=== PATIENT | male | born 1970 | race African-American/Black ===

== ENCOUNTER 2019-08-31 08:44 | Emergency (ER) | payer OTHER, SELFPAY ==
--- NOTE | ~2019-08-31 | XR_ITS ---
XR chest 2V DATE: 08/31/2019 09:06 INDICATION: Left-sided chest pain TECHNIQUE: 2 views COMPARISON: None FINDINGS: Normal heart size. No hilar or mediastinal enlargement. No pulmonary infiltrate or consolid ation, pleural effusion or pulmonary vascular congestion or pneumothorax. IMPRESSION: No active cardiopulmonary disease Reviewed, dictated and finalized at location A.
[2019-08-31 08:57] VITALS: BP 140/70; PULSE 70; RESP 16; TEMP 36.2; O2SAT 100
--- NOTE | 2019-08-31 08:57 | ED.CHESTPAIN ---
HPI - Chest Pain General Chief Complaint: Chest Pain Stated Complaint: chest pain Time Seen by Provider: 08/31/19 09:15 Source: patient and RN notes reviewed Mode of arrival: ambulatory Limitations: no limitations History of Present Illness HPI narrative: 49-year-old male presents with concern for left anterior lateral chest wall pain. Reports symptoms started Saturday. Reports symptoms worsen with movement, are worse when lying down. Reports pain is exacerbated if he makes quick motions such as quickly reaching for something. He reports coughing, deep breathing do not exacerbate pain. He reports he can find positions of comfort where he does not have pain. Reports symptoms started after eating a dish with onions on Saturday, reports onions often cause him indigestion. He denies shortness of breath, diaphoresis, pain with exertion. He denies fever, malaise, cough, body aches. Reports tenderness anterior left chest wall. Denies any injury or trauma. MD complaint: chest pain Related Data Allergies Allergy/AdvReac Type Severity Reaction Status Date / Time No Known Allergies Allergy Verified 08/31/19 08:59 Review of Systems Review of Systems: Narrative: CONSTITUTIONAL: Denies malaise, chills, sweats, or fever. EYES: Denies visual changes, redness, or discharge. ENT: Denies rhinorrhea, congestion, sinus pain, otalgia or sore throat. CARDIOVASCULAR: Reports left chest pain. Denies diaphoresis, palpitations, or edema. RESPIRATORY: Denies cough or dyspnea. GASTROINTESTINAL: Denies abdominal pain, nausea, vomiting, diarrhea. Reports indigestion SKIN: Denies bruising, redness MUSCULOSKELETAL: Reports left chest wall pain and tenderness NEUROLOGIC: Denies numbness, weakness, or headache. PSYCHIATRIC: Denies anxiety or depression. All systems reviewed & are unremarkable except as noted in HPI and below PMFSH Social History Social History Gender identity (if verbalized by the patient): Male Comments At time of signature, agree with nursing past medical, surgical, social and family history. There is no relevant family history pertinent to the presenting complaint Exam Narrative: Exam Narrative: GENERAL: Well-appearing, well-nourished, and in no acute distress. HEAD: Normocephalic, atraumatic. EYES: PERRLA, conjunctivae clear ENT: Mucous membranes moist. NECK: Supple. No jugular venous distension CHEST: No respiratory distress. Clear to auscultation. No bony deformities, no asymmetry. Speaks in full sentences. HEART: Regular rate and rhythm. No murmur heard. Normal peripheral pulses. ABDOMEN: Soft, nontender, nondistended, normal active bowel sounds, no palpable masses. Tenderness upon palpation to chest wall near the sixth and seventh ribs SKIN: Warm, dry, no rash. No ecchymosis, erythema, edema NEURO: Alert and oriented x3. No focal deficits. PSYCH: Normal mood and affect Course Course Emergency Course: This with patient limited diagnostic capability at [facility], discussed option of transferring to emergency department for further evaluation. Through shared decision making, patient chooses to decline transfer to emergency room at this time. Patient understands reasons to present to the emergency room if symptoms should change or worsen. Patient understands that he needs to follow-up with his primary care provider for further evaluation. Patient is aware of diagnosis, understands and agrees to treatment plan. Anticipatory guidance given. Patient agrees to follow-up as directed and is aware of reasons to seek care at the emergency department. Portions of this record may have been created with voice recognition software Vital Signs Vital signs: Vital Signs Temperature 97.2 F L 08/31/19 08:57 Pulse Rate 70 08/31/19 08:57 Respiratory Rate 16 08/31/19 08:57 Blood Pressure 140/70 08/31/19 08:57 Pulse Oximetry 100 08/31/19 08:57 Temperature 97.2 F L 08/31/19 08:57 Pulse Rate 70 08/31/19 08:57 Re
--- NOTE | 2019-08-31 08:59 | ECG_ITS ---
Measurements Intervals [place] Rate: 71 P: 70 [place]: 189 QRS: 29 QRSD: 89 T: 10 QT: 373 QTc: 405 Interpretive Statements SINUS RHYTHM VOLTAGE CRITERIA FOR LVH BASELINE WANDER- I, II, III, AVR, AVL, AVF, V1-V3 BORDERLINE ECG Electronically Signed On 08-31-2019 10:08:47 CDT by Ced Rubio D.O.
== END 2019-08-31 09:39 | disposition home or self-care (01) ==
PROVIDERS: Emergency Provider Nurse Practitioner; PCP Family Medicine
DX: R07.89 Other chest pain (principal)
CPT/HCPCS: 71046; 93005; 99203; G0463

== ENCOUNTER 2019-09-05 08:55 | Emergency (ER) | payer OTHER, SELFPAY ==
--- NOTE | ~2019-09-05 | XR_ITS ---
XR chest 2V DATE: 09/05/2019 09:26 INDICATION: Chest pain. Left-sided chest pressure since 3 days ago TECHNIQUE: PA and lateral views COMPARISON: 08/28/2021 view chest FINDINGS: Heart size is borderline. No hilar or mediastinal enlargement. Minimal atelectasis at the l toby bases. No pulmonary infiltrate or consolidation, pleural effusion or pulmonary vascular congestio n or pneumothorax is evident otherwise. Included skeletal structures are unremarkable. IMPRESSION: Minimal atelectasis at the lung bases. Reviewed, dictated and finalized at location A.
[2019-09-05 09:03] VITALS: BP 154/94; PULSE 67; RESP 20; TEMP 36.5; O2SAT 99
--- NOTE | 2019-09-05 09:05 | ECG_ITS ---
Measurements Intervals [place] Rate: 68 P: 44 TN: 193 QRS: -2 QRSD: 91 T: 13 QT: 368 QTc: 391 Interpretive Statements SINUS RHYTHM VOLTAGE CRITERIA FOR LVH BORDERLINE ST-T WAVE ABNORMALITY- INFERIOR LEADS BASELINE WANDER- V1-V3 BORDERLINE ECG Electronically Signed On 09-05-2019 9:47:22 CDT by Ced Rubio D.O.
--- NOTE | 2019-09-05 09:05 | ED.CHESTPAIN ---
HPI - Chest Pain General Chief Complaint: Chest Pain Stated Complaint: Chest Pressure Time Seen by Provider: 09/05/19 09:00 Source: RN notes reviewed History of Present Illness HPI narrative: Patient presents emergency department from home for chest pain. Patient states that symptoms began approximately 3 days ago. The pain is located in the left lower chest upper abdomen and radiates around to the left back. Patient states that the pain is described as sharp and stabbing and was initially intermittent but now is more constant. States the pain is worse with movement. Denies any fevers or chills shortness of breath abdominal pain nausea vomiting or any other symptoms. States he is went to the urgent care several days ago and was prescribed ibuprofen and muscle relaxers with minimal relief Related Data Home Medications Medication Instructions Recorded Confirmed esomeprazole magnesium [Nexium] 20 mg PO DAILY 09/05/19 Allergies Allergy/AdvReac Type Severity Reaction Status Date / Time ampicillin Allergy Hives Verified 09/05/19 09:13 Penicillins Allergy Rash Verified 09/05/19 09:13 Review of Systems Review of Systems: Narrative: Gen.: Denies fevers or chills ENT: Denies congestion Respiratory: Denies shortness of breath or cough CV: Reports chest pain GI: Denies abdominal pain nausea, emesis or diarrhea Musculoskeletal: Denies back pain or muscle pain Neuro: Denies numbness, tingling, weakness or focal weakness Skin: Denies rash Except as documented, all other systems reviewed and negative [facility] Past Medical History Medical History (Updated 09/05/19 @ 13:21 by Gurjit Robles DO) Patient denies significant medical history Social History Social History (Updated 09/05/19 @ 09:07 by Gurjit Robles DO) Smoking status: Never smoker Gender identity (if verbalized by the patient): Male Exam Narrative: Exam Narrative: APPEARANCE: No acute distress, nontoxic, resting in bed EYES: EOMI HEENT: Normocephalic, atraumatic, OMM RESPIRATORY: No respiratory distress Clear to auscultation bilaterally with no rhonchi wheezing or rales. CARDIOVASCULAR: Regular rate and rhythm without murmurs rubs or gallops. Chest: Tender palpation over left anterior chest wall no overlying rash or erythema pain worse with movement ABDOMINAL: Soft, nondistended, tender palpation left upper quadrant, no tenderness in right upper quadrant, right lower quadrant left lower quadrant, no rebound or guarding MUSCULOSKELETAl: Moves all extremities. No clubbing, cyanosis or edema. Back: No midline thoracic lumbar tenderness palpation, tender palpation over left paravertebral muscles T9 and 10 in conjunction with same area of pain over her anterior chest wall NEURO: Awake and alert. Following commands, speech normal, no focal deficits SKIN:: Warm, dry. No rashes lesions or abrasions PSYCHIATRIC: Normal affect/mood, Course Course Emergency Course: Patient states pain is completely resolved following GI cocktail Discussed with patient results of workup and diagnosis. Discussed need for follow-up with primary care, proper use of medication, and reasons to return to the emergency department. Patient understands and agrees to current treatment plan patient was started on Nexium at the urgent care 3 days ago will continue to take Vital Signs Vital signs: Vital Signs Temperature 97.7 F 09/05/19 09:03 Pulse Rate 67 09/05/19 09:03 Respiratory Rate 20 09/05/19 09:03 Blood Pressure 154/94 H 09/05/19 09:03 Pulse Oximetry 99 09/05/19 09:03 Temperature 97.7 F 09/05/19 09:03 Pulse Rate 64 09/05/19 11:42 Respiratory Rate 20 09/05/19 11:42 Blood Pressure 143/101 H 09/05/19 11:42 Pulse Oximetry 100 09/05/19 11:42 MDM - Chest Pain MDM Narrative Medical decision making narrative: Patient's EKGs and labs are without significant high risk changes. Cardiac risk factors reviewed. Patient is felt likely low risk for ACS and re
[2019-09-05 09:21] VITALS: PULSE 78
[2019-09-05 09:23] LABS: Basophils Absolute Auto 0.1 K/mm3 (0.0-0.1); Basophils Percent Auto 0.5 % (0.2-1.2); Eosinophils Absolute Auto 0.5 K/mm3 (0-0.3); Eosinophils Percent Auto 5.5 % (0-4.4); Hematocrit 45.2 % (42.0-52.0); Hemoglobin 14.8 g/dL (14.0-18.0); Immature Granulocyte Absolute 0.02 K/mm3 (0.00-0.031); Immature Granulocyte Percent A 0.2 % (0-0.5); Lymphocytes Absolute Auto 3.29 K/mm3 (0.9-3.2); Lymphocytes Percent Auto 35.6 % (18.3-44.2); Mean Corpuscular HGB Conc 32.7 g/dl (32-36); Mean Corpuscular Hemoglobin 29.7 pg (26-34); Mean Corpuscular Volume 90.6 fl (80-100); Mean Platelet Volume 10.9 fl (7.4-10.4); Monocytes Absolute Auto 0.7 K/mm3 (0.1-0.6); Monocytes Percent Auto 7.4 % (2.6-8.5); Neutrophils Absolute Auto 4.7 K/mm3 (1.3-6.7); Neutrophils Percent Auto 50.8 % (45.5-73.1); Platelet Count Result 240 k/mm3 (150-375); Red Blood Count 4.99 M/mm3 (4.6-6.20); Red Cell Distribution Width 15.7 % (11.5-14.5); White Blood Count 9.2 K/mm3 (4.5-10.0)
[2019-09-05 09:33] LABS: INR 0.9; Partial Thromboplastin Time 30.1 SECONDS (22.3-36.8); Prothrombin Time 12.1 Seconds (11.1-14.7)
[2019-09-05 09:37] LABS: Alanine Aminotransferase 22 U/L (4-50); Albumin Level 4.2 g/dL (3.5-5.1); Alkaline Phosphatase 66 U/L (38-126); Aspartate Amino Transferase 24 U/L (17-59); Bilirubin,Total 0.2 mg/dL (0.2-1.3); Blood Urea Nitrogen 17 mg/dL (9-20); Calcium 8.9 mg/dL (8.4-10.2); Carbon Dioxide 24 mmol/L (22-30); Chloride 105 mmol/L (98-107); Estimated CRCL calculation 104 ml/min; Estimated Glomerular Filt Rate > 60; Glucose 84 mg/dL (75-110); Lipase 33 U/L (23-300); Potassium 4.8 mmol/L (3.4-5.0); Sodium 136 mmol/L (137-145)
[2019-09-05 09:47] LABS: Troponin I < 0.012 ng/mL (0.000-0.034)
[2019-09-05 11:42] VITALS: BP 143/101; PULSE 64; RESP 20; O2SAT 100
[2019-09-05 13:02] LABS: Troponin I < 0.012 ng/mL (0.000-0.034)
[2019-09-05 13:33] VITALS: BP 147/93; PULSE 80; RESP 20; O2SAT 100
== END 2019-09-05 13:34 | disposition home or self-care (01) ==
PROVIDERS: Emergency Provider Emergency Medicine
DX: R10.12 Left upper quadrant pain (principal)
CPT/HCPCS: 36415; 71046; 80053; 83690; 84484; 85025; 85610; 85730; 93005; 99284; A9270

== ENCOUNTER 2019-09-22 12:39 | Outpatient (CLI) | payer OTHER, SELFPAY ==
--- NOTE | 2019-09-22 13:00 | ECHO_ITS ---
Patient Info Name: Andrei Lee Age: 49 years : 1970 Gender: Male Ht: 71 in Wt: 254 lbs BSA: 2.44 m2 HR: 60 bpm BP: 159 / 101 mmHg Heart Rhythm: Sinus Rhythm Technical Quality: Good Exam Date: 09/22/2019 1:34 PM Exam Location: [facility] Patient Status: Outpatient Admit Date: 09/22/2019 Staff Ordering Physician: Ced Rubio DO [employer]ating Machine Operator: Enrico Cruz RDCS Attending Provider: Ced Rubio DO Referring Physician: Ramiro MASON; Exam Type: CA echo doppler color flow Study Info Indications I31.9 - Disease of pericardium, unspecified Complete two-dimensional, color flow and Doppler transthoracic echocardiogram is performed. Strain analysis performed. History/Risk Factors Pericarditis; HTN. Summary 1. Left ventricular chamber dimension is normal. 2. Left ventricular systolic function is normal, estimated at 55-60%. 3. There is moderately increased left ventricular wall thickness. 4. The left ventricular diastolic function is abnormal. 5. E/e' 11 is mildly elevated. 6. Global longitudinal strain is abnormal at -14.8%. 7. Left atrial chamber dimension is mildly enlarged. 8. There is mild mitral valve regurgitation. 9. There is mild tricuspid valve regurgitation. 10. No pulmonary hypertension, estimated pulmonary arterial systolic pressure is 24 mmHg. Left Ventricle E/e' 11 is mildly elevated. Global longitudinal strain is abnormal at -14.8%. Left ventricular chamber dimension is normal. Left ventricular systolic function is normal, estimated at 55-60%. There is moderately increased left ventricular wall thickness. The left ventricular diastolic function is abnormal. Right Ventricle Right ventricular chamber dimension is normal. Right ventricular systolic function is normal. Left Atria Left atrial chamber dimension is mildly enlarged. Right Atria Right atrial chamber dimension is normal. Aortic Valve The aortic valve is trileaflet. There is no aortic valve stenosis. There is no aortic valve regurgitation. Pulmonic Valve There is no pulmonic regurgitation. Mitral Valve There is no mitral valve stenosis. There is mild mitral valve regurgitation. Tricuspid Valve There is mild tricuspid valve regurgitation. No pulmonary hypertension, estimated pulmonary arterial systolic pressure is 24 mmHg. Pericardium/Pleural There is no pericardial effusion. Inferior Vena Cava Normal inferior vena cava with >50% collapse upon inspiration consistent with normal right atrial pressure, 5 mmHg. Aorta The aortic root size at the sinus of Valsalva is normal. Left Ventricular Outflow Tract Name Value Normal LVOT 2D LVOT Diameter 2.4 cm LVOT Doppler LVOT Peak Gradient 5 mmHg LVOT Mean Gradient 2 mmHg LVOT VTI 20 cm LVOT VTI/AV VTI Ratio 0.9 LVOT Stroke Volume 86 ml LVOT CO 5.3 l/min LVOT CI 2.2 l/min/m2 Mitral Valve ---------
== END 2019-09-22 12:40 | disposition home or self-care (01) ==
PROVIDERS: Visit Provider Internal Medicine Cardiovascular Disease
DX: I31.9 Disease of pericardium, unspecified (principal); I34.0 Nonrheumatic mitral (valve) insufficiency; I36.1 Nonrheumatic tricuspid (valve) insufficiency
CPT/HCPCS: 93306